=== PATIENT | male | born 1940 | race Two or more races ===

== ENCOUNTER 2017-02-03 05:35 | Day surgery (SDC) | payer MEDICARE, BC ==
[2017-02-03] MEDS ORDERED: CEFAZOLIN SODIUM/DEXTROSE,ISO 50 ML IV ONE (06:21)
[2017-02-03] MEDS ORDERED: IV LR 1000 ML 1,000 ML ONE (06:21)
[2017-02-03] MEDS ORDERED: IV SET PRIMARY PUMP SET 1 EA INFUS.SET MC ONE (06:21)
[2017-02-03] MEDS ORDERED: SECONDARY IV SET 1 EA INFUS.SET MC ONE (06:21)
[2017-02-03] MEDS ORDERED: LIDOCAINE HCL/PF 1% 30 ML SDV ONE (06:43)
[2017-02-03] MEDS ORDERED: methylPREDNISolone ACETATE 80 MG/ML VIAL ONE (06:43)
== END 2017-02-03 13:02 | disposition home or self-care (01) ==
LOC: DS 05:35
PROVIDERS: ATTEND Specialist
DX: S83.281A Other tear of lateral meniscus, current injury, right knee, initial encounter (principal); M65.88 Other synovitis and tenosynovitis, other site; M94.261 Chondromalacia, right knee; X58.XXXA Exposure to other specified factors, initial encounter; Y93.89 Activity, other specified; Y92.89 Other specified places as the place of occurrence of the external cause; Y99.8 Other external cause status
CPT/HCPCS: 29881; 88304; 88305; 88311; A4217; A6253 ×2; A6402; J0690; J1040; J2704; J3490 ×2; J7120